=== PATIENT | male | born 1975 | race Caucasian/White ===

== ENCOUNTER 2018-12-12 16:36 | Emergency (ER) | payer SELFPAY ==
[2018-12-12 16:44] VITALS: BP 138/90
[2018-12-12] MEDS ORDERED: NACL 0.9% 1000 ML 1,000 ML IV ONE ×2 (16:44→20:24)
[2018-12-12 17:07] LABS: Basophils # (Auto) 0.1 K/mm3 (0.0-0.1); Basophils % (Auto) 0.4 % (0.0-1.8); Eosinophils # (Auto) 0.3 K/mm3 (0.0-0.4); Hematocrit 39.9 % (35.5-45.6); Hemoglobin 13.2 gm/dl (11.8-15.2); Lymphocytes # (Auto) 1.4 K/mm3 (1.2-5.4); Lymphocytes % (Auto) 12.1 % (13.4-35.0); Mean Corpuscular HGB Conc 33 % (32-34); Mean Corpuscular Volume 83 fl (84-94); Monocytes # (Auto) 0.7 K/mm3 (0.0-0.8); Monocytes % (Auto) 6.1 % (0.0-7.3); Platelet Count 345 K/mm3 (140-440); Red Cell Distribution Width 13.9 % (13.2-15.2)
[2018-12-12 17:28] LABS: Bilirubin,Urine NEG (Negative); Blood,Urine NEG (Negative); Color,Urine Amber (Yellow); Protein,Urine <15 mg/dL mg/dL (Negative)
[2018-12-12 17:29] LABS: Albumin 4.4 g/dL (3.9-5); Calcium 9.3 mg/dL (8.4-10.2)
--- NOTE | 2018-12-12 19:16 | Emergency Department Report ---
ED Male HPI - General Chief complaint: Abdominal Pain Stated complaint: FLANK PAIN Time Seen by Provider: 12/12/18 19:14 Source: patient Mode of arrival: Ambulatory Limitations: Language Barrier - History of Present Illness Initial comments: 43-year-old male comes in complaining of right flank pain that radiates to the groin and down the leg into the right testicle. Patient denies any past medical history. His been going on for about 7 days but the last 2 days has gotten worse. Patient also complains of 5 days of constipation with 2 days of a small stool. Patient reports that he saw a little blood in his urine on Monday none since. Patient personally taken ibuprofen and he took a antibiotic that was given to him by provider at [facility] provider. Patient was treated with Bactrim double strength for a possible UTI or kidney stone. Also given 1 g of Rocephin and Toradol with only temporary relief per provider. Patient reports that he was seen in a hospital in [place] and had ultrasounds completed and urinalysis. He reports that the ultrasound was negative for kidney stones but the urinalysis was positive for blood. Patient denies any fever or chills no nausea no vomiting. Patient reports no past medical history currently takes no medications on a daily basis has no known drug allergies. -: days(s) (7) Location: right testicle, right flank Severity: mild Quality: aching Consistency: intermittent Improves with: medication Worsens with: urination blood in urine. denies: fever, nausea/vomiting - Related Data Previous Rx's Medication Instructions Recorded Last Taken Type Ibuprofen [Motrin 800 MG tab] 800 mg PO Q8HR PRN #21 tablet 12/12/18 Unknown Rx Tamsulosin HCl [Flomax] 0.4 mg PO QDAY #5 cap.er.24h 12/12/18 Unknown Rx Allergies Allergy/AdvReac Type Severity Reaction Status Date / Time No Known Allergies Allergy Unverified 12/12/18 16:44 ED Review of Systems ROS: Stated complaint: FLANK PAIN Other details as noted in HPI Comment: All other systems reviewed and negative Constitutional: denies: chills, fever Genitourinary: hematuria, testicular pain (right), other (right flank) ED Past Medical Hx - Past Medical History Previous Medical History?: No - Surgical History Past Surgical History?: No - Social History Smoking Status: Never Smoker Substance Use Type: None - Medications Home Medications: Home Medications Medication Instructions Recorded Confirmed Last Taken Type Ibuprofen [Motrin 800 MG tab] 800 mg PO Q8HR PRN #21 tablet 12/12/18 Unknown Rx Tamsulosin HCl [Flomax] 0.4 mg PO QDAY #5 cap.er.24h 12/12/18 Unknown Rx ED Physical Exam - General Limitations: Language Barrier General appearance: alert, in no apparent distress - Head Head exam: Present: atraumatic, normocephalic - Eye Eye exam: Present: normal appearance - ENT ENT exam: Present: mucous membranes moist - Neck Neck exam: Present: normal inspection - Respiratory Respiratory exam: Present: normal lung sounds bilaterally. Absent: respiratory distress - Cardiovascular Cardiovascular Exam: Present: regular rate, normal rhythm. Absent: systolic murmur, diastolic murmur, rubs, gallop - GI/Abdominal GI/Abdominal exam: Present: soft. Absent: distended, tenderness - exam: Present: testicular tenderness (mild). Absent: scrotal swelling External exam: Absent: erythema, swelling - Extremities Exam Extremities exam: Present: full ROM - Back Exam Back exam: Present: CVA tenderness (R) - Neurological Exam Neurological exam: Present: alert, oriented X3 - Psychiatric Psychiatric exam: Present: normal affect, normal mood - Skin Skin exam: Present: warm, dry, intact, normal color. Absent: rash ED Course Vital Signs 12/12/18 16:42 Temperature 99.1 F Pulse Rate 92 H Respiratory 18 Rate Blood Pressure 138/90 O2 Sat by Pulse 97 Oximetry ED Medical Decision Making - Lab Data Result diagrams: 12/12/18 16:54 12/12/18 16:54 - Radiology Data Radiology results: report reviewed FINAL REPORT PROCEDURE: CT abdomen and pelvis without contrast. TECHNIQUE: Computerized axial tomography of the abdomen and pelvis was performed without intravenous contrast. This study is performed without intravascular contrast material and its sensitivity for abdominal and pelvic pathology, including neoplasms, inflammation, abscess, free fluid, thrombosis, arterial dissection and infarction, is reduced compared with a contrast enhanced study. HISTORY: right flank pain that radiates to the groin COMPARISON: No prior studies are available for comparison. FINDINGS: The lung bases are clear. There are no pleural effusions. The top of the liver is incompletely imaged. The liver appears homogeneous as far as visualized. The gallbladder is present. There is no biliary dilatation. The pancreas and spleen are grossly normal. The adrenal glands are not enlarged. Both kidneys appear normal in size and configuration. There are 2 small nonobstructing calculi in the right kidney. The largest is in the middle 3rd measuring 3.3 millimeters. There are 2 small nonobstructing calculi in the left kidney. The largest is in the middle 3rd measuring 1.5 millimeters. There is mild right hydronephrosis when compared to the left side. There is an obstructing calculus at the right ureterovesical junction. This calculus measures 4.0 millimeters in diameter. The abdominal aorta has a normal caliber. There is no retroperitoneal adenopathy. The unopacified gastrointestinal tract is unremarkable. A normal appendix is visible. The bladder, seminal vesicles and prostate appear normal. The regional skeleton appears intact. IMPRESSION: 4.0 millimeter diameter obstructing calculus in the distal right ureter. Additional bilateral small nonobstructing renal calculi. Transcribed By: [facility] Dictated By: MARIANA LOPEZ MD Electronically Authenticated By: MARIANA LOPEZ MD Signed Date/Time: 12/12/182109 DD/ 11 TD/TT: 12/12/182111 - Medical Decision Making Patient has been evaluated by this provider in fast track. Patient's getting 1 L of normal saline Urinalysis shows positive nitrates CT has been ordered which appears to have a right renal stone waiting for final reading from radiologist. History of the mild elevation of WBCs Spoke with patient with offshoring manager Devin information systems security manager regarding the importance of following up in the next 3-5 days with a medical tech/urologist. Discussed with patient that if he does not follow-up with a urologist he puts himself at risks of worsening kidney function, increased chances of dialysis or of kidney. Patient verbalized understanding and states that he was thinking of who he can follow-up when he gets to [place]. Patient reports that he has a 5 AM flight to [place] in the morning and states he is not able to stay but will follow up when he gets to his country. I discussed the patient I will place him on Flomax, ibuprofen. Patient reports his current pain is 4-5 out of 10. Patient had 2 L of normal saline and will start a by mouth challenge. Patient currently denies any nausea. Critical care attestation.: If time is entered above; I have spent that time in minutes in the direct care of this critically ill patient, excluding procedure time. ED Disposition Clinical Impression: Calculus of right kidney, Acute renal injury Disposition: TO HOME OR SELFCARE Is pt being admited?: No Does the pt Need Aspirin: No Condition: Stable Instructions: Kidney Stones (ED), How to Strain Your Urine (ED) Additional Instructions: Please take medication as prescribed. It is very important for you to follow up with the urologist in the next 3-5 days. Call the kidney stone hotline at [facility] if you are experiencing symptoms of a kidney stone ( ). The Kidney Stone Hotline is a 12/06 appointment scheduling line available to anyone who is experiencing symptoms of a kidney stone. I have listed information for the urologist in her discharge summary. It is very i mportant for you to follow up with the urologist as this increase her chances of decreasing urine or kidney function, increases her chance for dialysis or of kidney. Por favor, tome los medicamentos segn lo prescrito. Es muy importante que jacqueline un seguimiento con el urlogo en los prximos 3 a 5 carreon. Llame a la lnea directa de clculos renales en [facility] si tiene sntomas de un clculo renal ( ). La lnea directa de clculos renales es ai lnea de programacin de citas disponible las 24 horas del da, los 7 carreon de la semana, disponible para cualquier persona que experimente los sntomas de un clculo renal. He enumerado la informacin para el urlogo en uribe resumen de frieda. Es muy importante que jacqueline un seguimiento con el urlogo, ya que esto aumenta taye posibilidades de disminuir la funcin de la orina o los riones, aumenta las posibilidades de dilisis o muerte del rin. Prescriptions: Ibuprofen [Motrin 800 MG tab] 800 mg PO Q8HR PRN #21 tablet PRN Reason: Pain , Severe (7-10) Tamsulosin HCl [Flomax] 0.4 mg PO QDAY #5 cap.er.24h Referrals: NISHI CANDELARIO MD [Primary Care Provider] - 3-5 Days [facility] [Provider Group] - 3-5 Days CHRISTEL JENNINGS MD [Staff Physician] - 3-5 Days Print Language: ROMANSH
--- NOTE | 2018-12-12 21:10 | Cat Scan Report ---
FINAL REPORT PROCEDURE: CT abdomen and pelvis without contrast. TECHNIQUE: Computerized axial tomography of the abdomen and pelvis was performed without intravenous contrast. This study is performed without intravascular contrast material and its sensitivity for ab dominal and pelvic pathology, including neoplasms, inflammation, abscess, free fluid, thrombosis, art erial dissection and infarction, is reduced compared with a contrast enhanced study. HISTORY: right flank pain that radiates to the groin COMPARISON: No prior studies are available for comparison. FINDINGS: The lung bases are clear. There are no pleural effusions. The top of the liver is incompletely imaged . The liver appears homogeneous as far as visualized. The gallbladder is present. There is no biliary dilatation. The pancreas and spleen are grossly normal. The adrenal glands are not enlarged. Both ki dneys appear normal in size and configuration. There are 2 small nonobstructing calculi in the right kidney. The largest is in the middle 3rd measuring 3.3 millimeters. There are 2 small nonobstructing calculi in the left kidney. The largest is in the middle 3rd measuring 1.5 millimeters. There is mild right hydronephrosis when compared to the left side. There is an obstructing calculus at the right u reterovesical junction. This calculus measures 4.0 millimeters in diameter. The abdominal aorta has a normal caliber. There is no retroperitoneal adenopathy. The unopacified gastrointestinal tract is un remarkable. A normal appendix is visible. The bladder, seminal vesicles and prostate appear normal. T he regional skeleton appears intact. IMPRESSION: 4.0 millimeter diameter obstructing calculus in the distal right ureter. Additional bilateral small n onobstructing renal calculi.
== END 2018-12-12 23:30 | disposition home or self-care (01) ==
LOC: ED 16:36
DX: N17.9 Acute kidney failure, unspecified (principal); N20.0 Calculus of kidney
CPT/HCPCS: 36415; 74176; 80053; 81001; 85025; 96360; 96361; 99284; J7030